=== PATIENT | male | born 1955 | race Caucasian/White ===

== ENCOUNTER 2018-06-04 11:34 | Emergency (ER) | payer MEDICAID ==
[~2018-06-04] VITALS: Ht 165.1 cm; Wt 113.0 kg
[2018-06-04] MEDS ORDERED: SODIUM CHLORIDE 0.9% 1,000 ML IV ONE (12:02)
[2018-06-04 12:39] LABS: BASOPHILS % 0.8 % (0.0-2.0); EOSINOPHILS % 1.1 % (0.0-5.0); HEMATOCRIT. 43.3 % (42.0-52.0); HEMOGLOBIN. 14.4 g/dL (14.0-18.0); LYMPHOCYTES % 18.7 % (20.0-50.0); MEAN CORPUSCULAR HEMOGLOBIN 30.9 pg (28.0-32.0); MEAN CORPUSCULAR VOLUME 92.8 fL (80.0-94.0); MEAN PLATELET VOLUME 11.9 fl (7.4-10.4); MONOCYTES % 4.4 % (2.0-8.0); PLATELET 153 x1000/uL (130-400); RED BLOOD CELL COUNT 4.67 mill/uL (4.7-6.1); RED CELL DISTRIBUTION WIDTH 13.7 % (11.6-14.6)
[2018-06-04 12:45] LABS: CHLORIDE 102 mEq/L (98-107)
[2018-06-04 12:49] LABS: ETHANOL BLOOD < 10 mg/dL
[2018-06-05 13:57] VITALS: BP 143/72
== END 2018-06-05 13:57 | disposition home or self-care (01) ==
LOC: ER 11:36
DX: D32.0 Benign neoplasm of cerebral meninges (principal); R00.1 Bradycardia, unspecified; R42 Dizziness and giddiness; Z59.0 Homelessness
CPT/HCPCS: 36415; 70450; 71045; 80053; 84484; 85025; 87186; 93005; 96360; 99284; J7030